=== PATIENT | female | born 1990 | race African-American/Black ===

== ENCOUNTER 2019-05-26 23:53 | Emergency (ER) | payer BC, SELFPAY ==
--- NOTE | ~2019-05-26 | XR_ITS ---
EXAMINATION: XR chest 2V DATE: 05/27/2019 01:11 INDICATION: Shortness of breath and cough TECHNIQUE: PA and lateral views of the chest are obtained. COMPARISON: None available FINDINGS: The lungs are free of acute opacities. There is no pleural effusion or pneumothorax. The ca rdiomediastinal silhouette is normal. The visualized bones and soft tissues are unremarkable. IMPRESSION: 1. No acute cardiopulmonary abnormality. Reviewed, dictated and finalized at location A.
--- NOTE | 2019-05-27 00:09 | ED.URI ---
HPI - URI/Sore Throat General Chief Complaint: Upper Respiratory Infection Stated Complaint: runny nose, st, cough, diarrhea Time Seen by Provider: 05/27/19 00:07 Source: patient and RN notes reviewed Mode of arrival: ambulatory Limitations: no limitations History of Present Illness HPI Narrative: A 28 y/o female presents to the ED with multiple URI symptoms beginning yesterday morning. She states that yesterday she developed a sore throat, nausea, chills, sweats, body aches, diarrhea, SCHULZ, and a brown brown productive cough. She reports that today her cough has become dry but that the rest of her symptoms have continued to worsen. She notes that today she also has developed intermittent sternal CP and SOB. She also notes that flu B has been going around her work recently, so she decided to come to the ED. She denies any fevers or vomiting. MD elicited complaint: other (Multiple) Onset (ago): day(s) (yesterday) Consistency: progressively worsening Description of mucous: other (brown (resolved)) Context: sick contacts Associated symptoms: chills, diaphoresis, headache, sore throat, cough (brown productive that it now dry), chest pain (intermittent sternal), shortness of breath, nausea, diarrhea and other (body aches) Related Data Allergies Allergy/AdvReac Type Severity Reaction Status Date / Time No Known Drug Allergies Allergy Verified 01/14/11 19:04 Review of Systems Review of Systems: All systems reviewed & are unremarkable except as noted in HPI and below Constitutional: Constitutional: Reports body ache(s), Reports chills, Denies fever(s) and Reports other (sweats) ENT: Reports sore throat Cardiovascular: Cardiovascular: Reports chest pain Respiratory: Respiratory: Reports cough (brown productive that is now dry) and Reports dyspnea Gastrointestinal: Gastrointestinal: Reports diarrhea, Reports nausea and Denies vomiting Neurologic: Reports headache(s) PMF Past Medical History Medical History C. difficile colitis Hernia Surgical History Surgical History H/O hernia repair History of loop electrical excision procedure (LEEP) Hx of tubal ligation Social History Social History (Updated 05/27/19 @ 00:35 by Varun Guillaume) Smoking status: Never smoker Exam Const: General: cooperative, no acute distress and alert Nutritional Appearance: well nourished Orientation/consciousness: patient oriented x3 Limitations: no limitations HENMT: Mouth: Yes lip normal and Yes moist mucous membranes Resp: Effort & Inspection: normal respiratory effort Auscultation: clear to auscultation bilaterally and diminished lung sounds (minimally) Cardio: Rate: regular rate Rhythm: regular rhythm GI: GI Palp: Yes Soft to palpation and No Tenderness to palpation present (GI) Auscultation: normal bowel sounds Skin: General skin exam: normal color Neuro: General: patient oriented x3 Cognition (Neuro): normal cognition Speech: normal speech Extrem: General: normal to inspection, full ROM and no clubbing, cyanosis or edema Psych: Mental Status: mental status grossly normal Affect: normal affect Attitude: cooperative Course Course Emergency Course: Patient feeling better after nebulizer treatment. Chest tightness improved. No evidence of pneumonia noted on chest x-ray. Patient with extensive sick contacts with influenza B. Testing negative here in the emergency department. Patient advised possibility of false negative testing. Clinical picture consistent with viral respiratory infection/flu. Vital Signs Vital signs: Vital Signs Temperature 98.4 F 05/27/19 00:15 Pulse Rate 66 05/27/19 00:15 Respiratory Rate 20 05/27/19 00:15 Blood Pressure 132/89 05/27/19 00:15 Pulse Oximetry 100 05/27/19 00:15 Temperature 98.4 F 05/27/19 00:15 Pulse Rate 64 05/27/19 00:56 Respiratory Rate 18 05/27/19 00:56 Blood Press
[2019-05-27 00:15] VITALS: BP 132/89; PULSE 66; RESP 20; TEMP 36.9; O2SAT 100
[2019-05-27 00:46] VITALS: PULSE 66; RESP 18
[2019-05-27] MEDS: ALBUTEROL SULFATE NEB 2.5 MG/0.5 ML INH 5 MG INHALATION (00:46)
[2019-05-27] MEDS: IPRATROPIUM BR 0.02% INH SOLN 0.5 MG/2.5 ML VIAL INHALATION (00:46)
[2019-05-27 00:56] VITALS: PULSE 64; RESP 18
== END 2019-05-27 02:22 | disposition home or self-care (01) ==
PROVIDERS: Emergency Provider Emergency Medicine; PCP Obstetrics & Gynecology
DX: J11.1 Influenza due to unidentified influenza virus with other respiratory manifestations (principal); J40 Bronchitis, not specified as acute or chronic
CPT/HCPCS: 71046; 87081; 87804; 87880; 94640; 99283

== ENCOUNTER 2019-10-13 18:13 | Emergency (ER) | payer OTHER, SELFPAY ==
--- NOTE | ~2019-10-13 | XR_ITS ---
EXAMINATION: XR chest 1V portable 10/13/2019 19:11 INDICATION: Generalized chest pain and shortness of breath PROCEDURE: AP portable chest COMPARISON: 05/27/2019 FINDINGS: The lungs are clear. The cardiomediastinal silhouette is within normal limits. There are no pleural effusions. There is no pneumothorax suspected. IMPRESSION: 1: NO ACUTE CARDIOPULMONARY DISEASE. Reviewed, dictated and finalized at location A.
--- NOTE | 2019-10-13 18:15 | ECG_ITS ---
Measurements Intervals [place] Rate: 57 P: 70 MA: 156 QRS: 66 QRSD: 92 T: 36 QT: 383 QTc: 374 Interpretive Statements SINUS BRADYCARDIA BASELINE ARTIFACT- I, III, AVL BORDERLINE ECG Electronically Signed On 10-13-2019 19:25:45 CDT by Kb Rosen D.O.
[2019-10-13 18:18] VITALS: BP 138/80; PULSE 59; RESP 13; TEMP 37.3; O2SAT 100
[2019-10-13 18:24] VITALS: PULSE 62
[2019-10-13 18:37] LABS: Basophils Percent Auto 0.5 % (0.2-1.2); Eosinophils Absolute Auto 0.2 K/mm3 (0-0.3); Eosinophils Percent Auto 3.7 % (0-4.4); Hematocrit 36.8 % (37.0-47.0); Hemoglobin 12.3 g/dL (12.0-15.0); Immature Granulocyte Absolute 0.01 K/mm3 (0.00-0.031); Immature Granulocyte Percent A 0.2 % (0-0.5); Lymphocytes Absolute Auto 2.46 K/mm3 (0.9-3.2); Lymphocytes Percent Auto 42.9 % (18.3-44.2); Mean Corpuscular HGB Conc 33.4 g/dl (32-36); Mean Corpuscular Hemoglobin 29.9 pg (26-34); Mean Corpuscular Volume 89.5 fl (80-100); Mean Platelet Volume 9.7 fl (7.4-10.4); Monocytes Absolute Auto 0.5 K/mm3 (0.1-0.6); Monocytes Percent Auto 8.2 % (2.6-8.5); Neutrophils Absolute Auto 2.6 K/mm3 (1.3-6.7); Neutrophils Percent Auto 44.5 % (45.5-73.1); Platelet Count Result 385 k/mm3 (150-375); Red Blood Count 4.11 M/mm3 (4.2-5.4); Red Cell Distribution Width 12.2 % (11.5-14.5); White Blood Count 5.7 K/mm3 (4.5-10.0)
[2019-10-13 18:47] LABS: Prothrombin Time 12.8 Seconds (11.1-14.7)
[2019-10-13 18:48] LABS: Partial Thromboplastin Time 28.3 SECONDS (22.3-36.8)
[2019-10-13 18:50] LABS: Anion Gap 10.7 mmol/L (7-16); Blood Urea Nitrogen 13 mg/dL (7-17); Calcium 9.2 mg/dL (8.4-10.2); Carbon Dioxide 28 mmol/L (22-30); Chloride 104 mmol/L (98-107); Estimated CRCL calculation 63 ml/min; Estimated Glomerular Filt Rate > 60; Glucose 89 mg/dL (65-105); Potassium 3.7 mmol/L (3.4-5.0); Sodium 139 mmol/L (137-145)
[2019-10-13] MEDS: ASPIRIN 81 MG CHEWABLE TABLET 324 MG PO (18:55)
--- NOTE | 2019-10-13 18:59 | ED.CHESTPAIN ---
HPI - Chest Pain General Chief Complaint: Chest Pain Stated Complaint: CP (diag w/ COVID one month ago), SOB Time Seen by Provider: 10/13/19 18:47 Source: patient History of Present Illness HPI narrative: 29 years old -[place] female complaining of chest pain, shortness of breath for about 1 week. Patient had a positive COVID-19 on September 19. Went back to work 1 week ago. Currently complaining of generalized weakness. Lightheadedness, visions is a non-out, patient drove herself to the emergency room. Patient denies any fever, vomiting, sore throat or headache. Related Data Home Medications Medication Instructions Recorded Confirmed ferrous sulfate 10/13/19 Allergies Allergy/AdvReac Type Severity Reaction Status Date / Time No Known Drug Allergies Allergy Other Verified 10/13/19 18:23 Review of Systems Review of Systems: Narrative: CONSTITUTIONAL: Denies fever, chills, or sweats. EYES: Denies visual changes, redness, or discharge. ENT: Denies rhinorrhea, congestion, sore throat, or otalgia. CARDIOVASCULAR: Denies chest pain, palpitations, or edema. RESPIRATORY: Denies cough or dyspnea. GASTROINTESTINAL: Denies abdominal pain, nausea, vomiting, or diarrhea. GENITOURINARY: Denies dysuria or hematuria. SKIN: Denies rash or itching. MUSCULOSKELETAL: Denies back pain, joint pain, or myalgia. NEUROLOGIC: Denies headache, numbness, or weakness. PSYCHIATRIC: Denies anxiety or depression. PMFSH Past Medical History Medical History C. difficile colitis Hernia Surgical History Surgical History H/O hernia repair History of loop electrical excision procedure (LEEP) Hx of tubal ligation Social History Social History Smoking status: Never smoker Gender identity (if verbalized by the patient): Female Exam Narrative: Exam Narrative: General appearance: Well-developed, well-nourished Skin: Normal color Head: Normocephalic, nontraumatic Eyes: Clear conjunctiva ENT: Oropharynx normal, ears normal, nose normal Neck: Supple, nontender Chest and respiratory: Airway patent, no respiratory distress, no accessory muscle use Heart: Regular rate/rhythm Abdomen: Soft, nontender, no organomegaly, quiet bowel sounds Vascular: Normal peripheral pulses, normal capillary refill. Musculoskeletal: Normal range of motion, nontender back Neurologic: Alert and oriented ?3, [employer] is normal as tested, no gross motor deficit Course Course Emergency Course: Stable Vital Signs Vital signs: Vital Signs Temperature 37.3 C 10/13/19 18:18 Pulse Rate 59 L 10/13/19 18:18 Respiratory Rate 13 10/13/19 18:18 Blood Pressure 138/80 10/13/19 18:18 Pulse Oximetry 100 10/13/19 18:18 Temperature 37.3 C 10/13/19 18:18 Pulse Rate 62 10/13/19 18:24 Respiratory Rate 13 10/13/19 18:18 Blood Pressure 138/80 10/13/19 18:18 Pulse Oximetry 100 10/13/19 18:18 MDM - Chest Pain MDM Narrative Medical decision making narrative: Patient had a diagnosis of COVID-19 on September 19, currently complaining of a lot of symptoms which high likely secondary to the COVID-19 infection. The plan to get labs, chest x-ray, further plan to follow. Lab Data Result diagrams: 10/13/19 18:30 10/13/19 18:30 Labs: Lab Results 10/13/19 10/13/19 10/13/19 Range/Units 18:30 18:30 18:30 WBC 5.7 (4.5-10.0) K/mm3 RBC 4.11 L (4.2-5.4) M/mm3 Hgb 12.3 (12.0-15.0) g/dL Hct 36.8 L (37.0-47.0) % MCV 89.5 (80-100) fl MCH 29.9 (26-34) pg MCHC 33.4 (32
[2019-10-13 19:02] LABS: Troponin I < 0.012 ng/mL (0.000-0.034)
--- NOTE | 2019-10-13 19:26 | PC.NURSE ---
Called lab to add on D-Dimer
[2019-10-13 19:45] LABS: D Dimer 0.27 ug/mL (<0.48)
[2019-10-13 20:30] VITALS: BP 131/82; PULSE 84; RESP 18; TEMP 36.7; O2SAT 100
== END 2019-10-13 20:31 | disposition home or self-care (01) ==
PROVIDERS: Emergency Provider Emergency Medicine; PCP Obstetrics & Gynecology
DX: U07.1 COVID-19 (principal); G93.3 Postviral and related fatigue syndromes
CPT/HCPCS: 36415; 71045; 80048; 84484; 85025; 85380; 85610; 85730; 93005; 99284; A9270

== ENCOUNTER 2022-06-24 12:00 | Outpatient (CLI) | payer OTHER, SELFPAY ==
--- NOTE | ~2022-06-24 | CT_ITS ---
EXAMINATION: CT BRAIN W/O DATE: 06/24/2022 13:12 INDICATION: Chronic intractable headache TECHNIQUE: Computed tomography (CT) of the head was performed without intravenous contrast. The dose- length product was 605.33 mGy-cm. Automated exposure control and iterative reconstruction technique w ere employed. COMPARISON: No prior studies for comparison. FINDINGS: Normal brain parenchymal volume for age. Normal ingram-white differentiation. No acute intrac ranial hemorrhage, infarction, mass or mass effect. No ventriculomegaly or midline shift. Midline sagittal images demonstrate a normal corpus callosum, c raniovertebral junction and sella turcica. Basilar cisterns are patent. There is mucosal thickening of the maxillary and ethmoid sinuses. Mastoids are pneumatized. No depres sed skull fractures. IMPRESSION: 1. No acute intracranial abnormality. 2: Mild sinus disease. Reviewed, dictated and finalized at location B.
[2022-06-24 13:40] LABS: Hematocrit 37.2 % (37.0-47.0); Hemoglobin 12.3 g/dL (12.0-15.0); Mean Corpuscular HGB Conc 33.1 g/dl (32-36); Mean Corpuscular Hemoglobin 29.4 pg (26-34); Mean Platelet Volume 9.7 fl (7.4-10.4); Platelet Count Result 378 k/mm3 (150-375); Red Blood Count 4.18 M/mm3 (4.2-5.4); Red Cell Distribution Width 12.3 % (11.5-14.5); White Blood Count 4.3 K/mm3 (4.5-10.0)
[2022-06-24 14:02] LABS: LDL Cholesterol Direct 117 mg/dL
[2022-06-24 14:33] LABS: Alanine Aminotransferase 24 U/L (6-35); Albumin Level 4.5 g/dL (3.5-5.1); Alkaline Phosphatase 64 U/L (38-126); Anion Gap 7 mmol/L (8-16); Aspartate Amino Transferase 29 U/L (14-36); Bilirubin,Total 0.8 mg/dL (0.2-1.3); Blood Urea Nitrogen 14 mg/dL (7-17); Calcium 9.1 mg/dL (8.4-10.2); Carbon Dioxide 29 mmol/L (22-30); Chloride 104 mmol/L (98-107); Cholesterol 208 mg/dL (0-200); Estimated Glomerular Filt Rate > 60; Glucose 83 mg/dL (65-110); HDL Direct 45 mg/dL; Potassium 3.9 mmol/L (3.4-5.0); Sodium 140 mmol/L (137-145); Triglycerides 76 mg/dL (<150)
[2022-06-24 14:34] LABS: Vitamin D 25 Hydroxy 23.9 ng/mL
[2022-06-24 14:47] LABS: Thyroid Stimulating Hormone Reflex 0.791 uIU/mL (0.465-4.68)
[2022-06-24 15:19] LABS: Hemoglobin A1C 5.5 % (<5.7)
[2022-06-28 15:14] LABS: FSH 6.9 mIU/mL (***)
[2022-06-30 22:03] LABS: Estradiol, Ultrasensitive 34 pg/mL
== END 2022-06-24 12:01 | disposition home or self-care (01) ==
PROVIDERS: PCP Nurse Practitioner; Visit Provider Nurse Practitioner Family
DX: G89.29 Other chronic pain (principal); R51.9 Headache, unspecified; R23.2 Flushing; L65.9 Nonscarring hair loss, unspecified; R68.89 Other general symptoms and signs; J32.9 Chronic sinusitis, unspecified
CPT/HCPCS: 36415; 70450; 80053; 80061; 82306; 82670; 83001; 83036; 84443; 85027

== ENCOUNTER 2022-12-12 08:36 | Outpatient (CLI) | payer OTHER, SELFPAY ==
[2022-12-12 08:54] LABS: Basophils Percent Auto 0.7 % (0.2-1.2); Eosinophils Absolute Auto 0.3 K/mm3 (0-0.3); Hematocrit 38.5 % (37.0-47.0); Hemoglobin 12.5 g/dL (12.0-15.0); Immature Granulocyte Absolute 0.01 K/mm3 (0.00-0.031); Immature Granulocyte Percent A 0.2 % (0-0.5); Lymphocytes Absolute Auto 2.24 K/mm3 (0.9-3.2); Lymphocytes Percent Auto 41.2 % (18.3-44.2); Mean Corpuscular HGB Conc 32.5 g/dl (32-36); Mean Corpuscular Hemoglobin 29.8 pg (26-34); Mean Corpuscular Volume 91.9 fl (80-100); Mean Platelet Volume 9.9 fl (7.4-10.4); Monocytes Absolute Auto 0.5 K/mm3 (0.1-0.6); Monocytes Percent Auto 8.5 % (2.6-8.5); Neutrophils Absolute Auto 2.4 K/mm3 (1.3-6.7); Neutrophils Percent Auto 44.4 % (45.5-73.1); Platelet Count Result 305 k/mm3 (150-375); Red Blood Count 4.19 M/mm3 (4.2-5.4); White Blood Count 5.4 K/mm3 (4.5-10.0)
[2022-12-12 09:11] LABS: Alanine Aminotransferase 20 U/L (6-35); Albumin Level 3.7 g/dL (3.5-5.1); Alkaline Phosphatase 45 U/L (38-126); Anion Gap 0 mmol/L (8-16); Aspartate Amino Transferase 39 U/L (14-36); Bilirubin,Total 0.6 mg/dL (0.2-1.3); Blood Urea Nitrogen 12 mg/dL (7-17); Calcium 8.5 mg/dL (8.4-10.2); Carbon Dioxide 33 mmol/L (22-30); Chloride 106 mmol/L (98-107); Estimated Glomerular Filt Rate > 60; Glucose 87 mg/dL (65-110); Potassium 4.1 mmol/L (3.4-5.0); Sodium 139 mmol/L (137-145)
[2022-12-12 09:27] LABS: Vitamin D 25 Hydroxy 48.2 ng/mL
[2022-12-12 09:35] LABS: Thyroid Stimulating Hormone 0.976 uIU/mL (0.465-4.680)
== END 2022-12-12 08:37 | disposition home or self-care (01) ==
PROVIDERS: PCP Internal Medicine; Visit Provider Clinical Nurse Specialist
DX: R51.9 Headache, unspecified (principal); F41.9 Anxiety disorder, unspecified; E55.9 Vitamin D deficiency, unspecified
CPT/HCPCS: 36415; 80053; 82306; 84443; 85025

== ENCOUNTER 2022-12-29 11:49 | Outpatient (CLI) | payer OTHER, SELFPAY ==
--- NOTE | ~2022-12-29 | MR_ITS ---
EXAMINATION: MR brain/brain stem wo/w con DATE: 12/29/2022 14:03 INDICATION: Headache. Dizziness. TECHNIQUE: Magnetic resonance imaging (MRI) of the brain and brainstem was performed without and with 15 mL MultiHance intravenous contrast. COMPARISON: Head CT 06/24/2022 FINDINGS: There are foci of increased T2-weighted signal intensity in the right frontal lobe white ma tter, which is within normal limits for the patient's age. There is no intracranial hemorrhage, acute infarction, or abnormal intracranial mass lesion. The ventricles are normal in size. There is mucosa l thickening in the paranasal sinuses. The orbits are normal. The mastoid air cells are normal. IMPRESSION: 1. Normal brain. Reviewed, dictated and finalized at location E. IMPRESSION: 1. Normal brain.
== END 2022-12-29 11:50 | disposition home or self-care (01) ==
PROVIDERS: PCP Internal Medicine; Visit Provider Clinical Nurse Specialist
DX: R51.9 Headache, unspecified (principal); R42 Dizziness and giddiness; H53.8 Other visual disturbances
CPT/HCPCS: 70553; A9577

== ENCOUNTER 2024-11-17 19:25 | Emergency (ER) | payer BC, SELFPAY ==
--- NOTE | 2024-11-17 19:32 | ED.URI ---
HPI - URI/Sore Throat General Chief Complaint: Upper Respiratory Infection Stated Complaint: cough/sneezing/chills Time Seen by Provider: 11/17/24 19:36 Source: patient and RN notes reviewed Mode of arrival: ambulatory Limitations: no limitations History of Present Illness HPI Narrative: 34-year-old female presents with concern for 2 day history of nasal congestion, scratchy throat, body aches, chills. Reports low-grade temperature that she measured today. She reports her kids have been sick. She is taking some [id number] medications without relief. MD elicited complaint: cough and nasal congestion Related Data Home Medications ?Medication ?Instructions ?Recorded ?Confirmed ?Last Taken ?Type sertraline 50 mg tablet 50 mg PO DAILY 12/11/22 12/11/22 Unknown History Allergies Allergy/AdvReac Type Severity Reaction Status Date / Time No Known Drug Allergies Allergy Other Verified 11/17/24 19:27 Review of Systems Review of Systems: CONSTITUTIONAL: Reports malaise, chills, sweats, low-grade fever. EYES: Denies visual changes, redness, or discharge. ENT: Reports rhinorrhea, congestion, otalgia and scratching throat. CARDIOVASCULAR: Denies chest pain, palpitations, or edema. RESPIRATORY: Reports cough. Denies dyspnea. GASTROINTESTINAL: Denies abdominal pain, nausea, vomiting, diarrhea SKIN: Denies rash or itching. MUSCULOSKELETAL: Reports myalgia. NEUROLOGIC: Reports headache. All systems reviewed & are unremarkable except as noted in HPI and below PMFSH Past Medical History Medical History (Updated 11/17/24 @ 19:51 by Lizette Lau NP) Headache Anxiety C. difficile colitis Hernia Surgical History Surgical History H/O hernia repair History of loop electrical excision procedure (LEEP) Hx of tubal ligation Family History Family History Father AA (alcohol abuse) Hypertension Heart problem Cerebrovascular accident Mother Diabetes mellitus Heart problem Cerebrovascular accident Thyroid condition Sibling No problems noted. Social History Social History (Updated 12/11/22 @ 09:25 by Corrie Paris MA) Smoking status: Never smoker Alcohol intake: current Substance use: never Lack of Transportation: No Lack of Food: Sometimes True Current Housing: I Have Housing Concerned About Future Housing: No Difficulty Paying Gas/Electric Bills: No Difficulty Paying for Meds: No Currently Unemployed: No Education: Associate Degree Difficulty w/ Childcare or Family Care: No Occupation/Education: occupation Additional occupation/education comments: [employer] Gender identity (if verbalized by the patient): Female Comments At time of signature, agree with nursing past medical, surgical, social and family history. There is no relevant family history pertinent to the presenting complaint Exam Narrative: GENERAL: Well-appearing, well-nourished, and in no acute distress. HEAD: Normocephalic EYES: PERRLA, conjunctivae clear ENT: Nares clear, turbinates edematous and erythematous, clear discharge. Mucous membranes moist. TM pearly ingram with sharp light reflex bilaterally; no tragal tenderness. Oropharynx not erythematous without lesions. Tonsils not enlarged and without exudate, no drooling, no hoarseness, no trismus, uvula midline. NECK: Supple. No lymphadenopathy CHEST: Clear to auscultation, breath sounds equal. No wheezing, rhonchi, rales, or stridor. No respiratory distress, speaks in full sentences. HEART: Regular rate and rhythm. No murmur heard. SKIN: Warm, dry, no rash. NEURO: Alert and oriented x3. PSYCH: Normal mood and affect Course Course Emergency Course: Patient is aware of diagnosis, understands and agrees to treatment plan. Anticipatory guidance given. Patient agrees to follow-up as directed and is aware of reasons to seek care at the emergency department. Portions of this record may have been created with voice recognition software Level of Care: Express Care Visit Vital Signs Vital signs: Reviewed. MDM - URI/Sore Throat MDM Narrative Medical decision making narrative: Differential diagnosis considered: Nicolas virus, strep pharyngitis, allergic rhinitis, upper respiratory tract infection, sinusitis, rhinosinusitis, nasopharyngitis. viral pharyngitis, otitis media, otitis externa, pneumonia, bronchitis, viral cough syndrome, viral syndrome, and influenza. Exam findings show no acute concerns or changes; patient is non-toxic appearing and is in no distress. Patient is appropriate for outpatient treatment and follow-up. Lab Data Attestation: I reviewed the patient's lab results. Critical Care Time Critical Care Time Critical Care Time: No Discharge Plan Discharge Clinical Impression: Viral infection Patient Disposition: Home Condition: Stable Instructions: Antibiotic Form, Viral Syndrome (ED) Additional Instructions: Your rapid COVID and flu tests are negative Viral illness may last between 7-21 days; antibiotics do not cure viral illness and are NOT recommended at this time. Recommend antihistamine such as Benadryl at night time and Zyrtec or Poornima during the day Also, recommend symptomatic treatment includes: rest, fluids, and increase humidity of the air at home. Recommend Acetaminophen as directed on the bottle to reduce fever, pain, headache. Avoid smoking/second-hand smoke. Please schedule a follow-up visit with your personal physician for further evaluation and treatment within 3-5days. If your symptoms persist, change or worsen significantly before you can contact your personal physician then please, without delay, go to the emergency department for further evaluation. Patient Language: Moldovan Prescriptions: New methylprednisolone [Medrol (Yunior)] 4 mg tablets,dose pack See Rx Instructions .ROUTE .COMPLEX Qty: 21 0RF Rx Instructions: orally per package directions No Action sertraline 50 mg tablet 50 mg PO DAILY Ubrelvy 50 mg tablet 50 mg PO ONCE Qty: 14 0RF Rx Instructions: as a single dose; may repeat once in >=2 hours after first dose if needed Follow-up/Referrals: Samantha,UNA Bauer [Primary Care Provider] Stand Alone Forms: Work/School Release IP Time of Disposition: 19:51
[2024-11-17 19:33] VITALS: BP 140/87; PULSE 67; RESP 20; TEMP 37.4; O2SAT 99
[2024-11-17 19:55] LABS: EDCOVIDSCREEN Negative (Negative); EDINFLUASCREEN Negative (Negative); EDINFLUBSCREEN Negative (Negative)
== END 2024-11-17 19:56 | disposition home or self-care (01) ==
PROVIDERS: Emergency Provider Nurse Practitioner; PCP Nurse Practitioner
DX: B34.9 Viral infection, unspecified (principal); Z20.822 Contact with and (suspected) exposure to COVID-19; F41.9 Anxiety disorder, unspecified; Z86.19 Personal history of other infectious and parasitic diseases
CPT/HCPCS: 87426; 87804; 99213; G0463